=== PATIENT | female | born 1945 | race Caucasian/White ===

== ENCOUNTER 2018-09-24 02:52 | Inpatient (IN) | payer OTHER ==
[~2018-09-24] VITALS: Ht 152.4 cm; Wt 63.5 kg
[~2018-09-24 02:52] MED LIST: ADVAIR HFA115 MCG/21 INH; ALBUTEROL SULFAT2 MG PO; ASPIRIN EC325 M1 PO; CARDIZEM CD180 MG PO; CLONAZEPAM 0.50.5 M1 PO; COZAAR 25 MG TA25 M1 PO; DUONEB 2.5-0.5 M3 ML INH; FLEXERIL PO; FLORANEX TABLE1 EACH PO; FOLIC ACID 40400 MCG PO; KLOR-CON 1010 MEQ PO; KRILL OIL500 MG PO; LASIX 40 MG TAB40 M1 PO; LEVAQUIN 500 M500 M2 PO; MIRALAX255 GM PO; MUCINEX TA600 MG/TA2 PO; MUCINEX600 MG PO; MULTIVITAMINS1 EAC7 PO; NICOTINE TRANSDE7 MG TD; OLANZAPINE2.5 MG PO; OXYGEN MISCELL; PREDNISONE 10 M10 M1 PO; PREDNISONE 10 M10 MG PO; PREDNISONE 20 M20 MG PO; PROTONIX40 M1 PO; PROTONIX40 M2 PO; PROZAC20 MG PO; SUPER B COMPLE150 MG PO; TESSALON PERLE100 MG PO; TRAMADOL 50 MG50 MG PO; ULTRAM 50MG TAB50 MG PO
[2018-09-24 03:31] LABS: HEMATOCRIT 35.7 % (37.0-47.0); HEMOGLOBIN 11.8 gm/dL (12.0-15.0); MCH 28.1 pg (26.0-34.0); MCV 84.9 fL (80.0-100.0); MPV 7.4 fl. (7.2-11.1); NUCLEATED RBCS 0 /100WBC; PLATELET COUNT* 317 thou/uL (150-400); RBC 4.21 mil/uL (4.20-5.00); RDW-CV 14.1 % (10.5-14.5); WBC 12.7 thou/uL (4.0-11.0)
[2018-09-24 03:42] LABS: INFLUENZA A ANTIGEN None Detected (None Detect)
[2018-09-24 03:47] LABS: ANION GAP 3 mmol/L (7-16); BUN 16 mg/dL (7-18); CALCIUM 8.6 mg/dL (8.5-10.1); CHLORIDE 94 mmol/L (98-107); CO2 33 mmol/L (21-32); CREATININE 0.6 mg/dL (0.6-1.3); GLUCOSE 128 mg/dL (70-99); SODIUM 130 mmol/L (136-145)
[2018-09-24 03:48] LABS: POTASSIUM 4.4 mmol/L (3.5-5.1)
[2018-09-24 03:58] LABS: ALBUMIN 2.4 g/dL (3.4-5.0); ALKALINE PHOSPHATASE 68 U/L (46-116); INR 1.1; NT-PRO BRAIN NAT PEPTIDE 300 pg/mL (<300); PROTIME 11.1 Seconds (9.20-11.50); SGOT 28 U/L (15-37); SGPT 24 U/L (30-65); TOTAL BILIRUBIN 0.3 mg/dL (<0.1-1.0); TOTAL PROTEIN 6.8 g/dL (6.4-8.2); TROPONIN-I LEVEL <0.06 ng/mL (<0.06)
[2018-09-24 05:13] LABS: ABSOLUTE LYMPHOCYTES 0.4 thou/uL (0.8-5.3); ABSOLUTE MONOCYTES 1.9 thou/uL (0.0-1.2); ABSOLUTE NEUTROPHILS 10.4 thou/uL (1.6-8.1)
[2018-09-24 05:14] LABS: PLATELET ESTIMATE ADEQUATE
[2018-09-24 05:49] LABS: URINE BILIRUBIN NEGATIVE (Negative); URINE BLOOD NEGATIVE (Negative); URINE CLARITY CLEAR; URINE COLOR YELLOW; URINE GLUCOSE-RANDOM NEGATIVE (Negative); URINE KETONES NEGATIVE (Negative); URINE LEUKOCYTES-REFLEX NEGATIVE (Negative); URINE NITRITE-REFLEX NEGATIVE (Negative); URINE PROTEIN NEGATIVE (Negative); URINE UROBILINOGEN 0.2 E.U./dl (0.2-1.0)
--- NOTE | 2018-09-24 08:15 | NUR ---
PT WAS TRANSFERRED INTO HOSPITAL BED.
--- NOTE | 2018-09-24 09:00 | NUR ---
PT GIVEN BREAKFAST TRAY AT THIS TIME.
--- NOTE | 2018-09-24 10:30 | NUR ---
PT BROUGHT FAN FOR ROOM PER REQUEST
[2018-09-24 10:58] VITALS: BP 135/44
--- NOTE | 2018-09-24 15:00 | EKG ---
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 : 1945 Requested By: Cristal Sumner Order Number: [id number] MD: Mychal Richardson Measurements Intervals [place] Rate: 107 P: 85 [place]: 157 QRS: 86 QRSD: 97 T: 63 QT: 330 QTc: 441 Interpretive Statements Sinus tachycardia Consider right atrial enlargement Borderline right axis deviation Compared to ECG 02/23/2017 18:44:54 Sinus rhythm no longer present Electronically Signed On 09-24-2018 15:00:23 [employer] by Mychal Richardson [email or web address] <ELECTRONICALLY SIGNED> By: Mychal Richardson MD, FAC 09/24/18 1500 0325 0325 Mychal Richardson MD, [facility] /EPI
[2018-09-24 15:49] VITALS: BP 120/50
[2018-09-24] MEDS ORDERED: ATIVAN0.5 MG PO (17:02)
[2018-09-24] MEDS ORDERED: FLECAINIDE ACET50 M1 PO (17:02)
[2018-09-24] MEDS ORDERED: UNICOMPLEX M TA1 TA1 PO (17:05)
--- NOTE | 2018-09-24 17:42 | NUR ---
ASSESSMENT COMPLETE. PT ALERT AND ORIENTED X4. PT ADMITTED FLU+, FALL, AND DYPSNEA. PT GIVEN TAMIFLU AND IV LEVAQUIN. PT HAS HX COPD, CURRENT SMOKER. PT HAS RT TREATMENTS Q4, BIPAP HS. PT IS RESTING AT THIS TIME. PT TAKES MEDS WITHOUT DIFFICULTY. PT USES BEDPAN FOR WEAKNESS. SEE ASSESSMENT AND VITALS FOR OTHER DETAILS. CALL LIGHT WITHIN REACH, WILL CONTINUE PLAN OF CARE
[2018-09-24 20:15] VITALS: BP 134/41
[2018-09-25 04:46] LABS: ABSOLUTE LYMPHOCYTES 1.5 thou/uL (0.8-5.3); ABSOLUTE MONOCYTES 1.4 thou/uL (0.0-1.2); ABSOLUTE NEUTROPHILS 8.2 thou/uL (1.6-8.1); BASOPHILS 0.4 %; EOSINOPHILS 0.2 %; HEMATOCRIT 32.5 % (37.0-47.0); HEMOGLOBIN 10.4 gm/dL (12.0-15.0); LYMPHOCYTES 13.8 %; MCH 27.4 pg (26.0-34.0); MCV 85.7 fL (80.0-100.0); MONOCYTES 12.1 %; MPV 8.2 fl. (7.2-11.1); NUCLEATED RBCS 0 /100WBC; PLATELET COUNT* 286 thou/uL (150-400); POLYS 73.5 %; RBC 3.79 mil/uL (4.20-5.00); RDW-CV 14.3 % (10.5-14.5); WBC 11.2 thou/uL (4.0-11.0)
--- NOTE | 2018-09-25 05:36 | NUR ---
PT SLEPT MOST OF SHIFT. ASSESSMENT DOCUMENTED. MEDS GIVEN PER E-OCT. IV PATENT. PT REPORTED PAIN IN HER RIGHT KNEE, PAIN MEDS GIVEN PER E-MAR. PT EXPRESSED CONCERNS THAT SHE IS NOT ON MUCINEX AND THAT HER LORAZEPAM HAD NOT BEEN RESTARTED. PT BECAME VERY ANXIOUS STATING SHE HAD TO HAVE HER ANXIETY MEDS OR SHE WOULD START HAVING CHEST PALPITATIONS, DR NOTIFIED, ORDER RECIVED. PT UP TO BSC THIS SHIFT FOR BOWEL MOVEMENT. WILL CONTINUE WITH PLAN OF CARE.
[2018-09-25 05:43] LABS: CALCIUM 8.6 mg/dL (8.5-10.1); CREATININE 0.5 mg/dL (0.6-1.3); MAGNESIUM 1.9 mg/dL (1.8-2.4)
[2018-09-25 07:40] VITALS: BP 166/66
--- NOTE | 2018-09-25 15:15 | NUR ---
SPOKE TO THE PATIENT TO DISCUSS HER HOME SITUATION, DISCHARGE PLANNING, AND TO INFORM OF THE ROLE OF CM. PATIENT ALERT, ORIENTED, AND INDPENDENT WITH ADL'S. PATIENT RESIDES AT HOME ALONE. PATIENT INFORMS THAT HER SON AND DIL ARE AVIALABLE TO ASSIST HER NEEDED, AND ASSIST HER WITH GROCERY SHOPPING. PATIENT ABLE TO DO LITE CLEANING AND IS ON-SERVICE MEALS ON WHEELS. PATIENT INFORMS THAT SHE HAS HOME OXYGEN AND TRILOGY AT HOME WITH [facility]. PATIENT ALSO OWNS A WALKER, BUT DOES NOT USE IT TO AMBULATE. PAATIENT PLANS TO RETURN HOME AT D/C AND IS OPEN TO HH. CM WILL REMAINI AVAILABLE TO ASSIST AND FOLLOW NEEDED.
[2018-09-25 16:07] VITALS: BP 150/55
--- NOTE | 2018-09-25 17:24 | NUR ---
ASSESSMENT COMPLETE. PT ALERT AND ORIENTED X4. MUCINEX STARTED TODAY PER PT REQUEST. PULMONARY CONSULT FOR ABNORMAL CTA ON 09/24. PT IS ON 2L PER NC WITH [place] SATS, VSS. AFEBRILE. PT TOLERATING MEALS, DENIES N/V. SWALLOW EVAL TODAY, PT DID FINE PER SPEECH. PT IS IN ISOLATION FOR FLU B. PT IS UP ONE ASSIST TO BSC. LARGE BM TODAY. IV LEVAQUIN GIVEN DAILY. SEE ASSESSMENT AND VITALS FOR OTHER DETAILS. CALL LIGHT WITHIN REACH, WILL CONTINUE PLAN OF CARE
[2018-09-25 19:45] VITALS: BP 168/55
[2018-09-26 04:10] LABS: ABSOLUTE LYMPHOCYTES 2.1 thou/uL (0.8-5.3); ABSOLUTE MONOCYTES 1.1 thou/uL (0.0-1.2); ABSOLUTE NEUTROPHILS 7.5 thou/uL (1.6-8.1); BASOPHILS 0.4 %; EOSINOPHILS 0.3 %; LYMPHOCYTES 19.5 %; MCH 27.6 pg (26.0-34.0); MCHC 32.4 g/dL (28.0-37.0); MCV 85.2 fL (80.0-100.0); MONOCYTES 10.5 %; MPV 7.8 fl. (7.2-11.1); NUCLEATED RBCS 0 /100WBC; PLATELET COUNT* 316 thou/uL (150-400); POLYS 69.3 %; RDW-CV 14.5 % (10.5-14.5); WBC 10.8 thou/uL (4.0-11.0)
[2018-09-26 04:25] LABS: CALCIUM 8.6 mg/dL (8.5-10.1); CREATININE 0.6 mg/dL (0.6-1.3); POTASSIUM 3.7 mmol/L (3.5-5.1)
--- NOTE | 2018-09-26 06:17 | NUR ---
PT SLEPT MOST OF SHIFT. ASSESSMENT DOCUMENTED. MEDS GIVEN PER E-OCT. IV PATENT. NO REPORTS OF PAIN THIS SHIFT. ANXIETY MEDS GIVEN PER E-OCT. PT UP TO BSC THROUGH NIGHT. WILL CONTINUE WITH PLAN OF CARE.
[2018-09-26 08:45] VITALS: BP 160/65
[2018-09-26 10:22] VITALS: BP 168/55
[2018-09-26 16:45] VITALS: BP 160/66
--- NOTE | 2018-09-26 18:44 | NUR ---
PATIENT RESTING IN BED, ALERT AND ORIENED, IS ON 2L OF OXYGEN, DENIES ANY TROUBLE BREATHING. STATES NO NEEDS AT THIS TIME. BED IN LOWEST POSITION, CALL LIGHT WITHIN REACH, WILL CONTINUE TO MONITOR.
[2018-09-27 07:45] VITALS: BP 157/50
--- NOTE | 2018-09-27 10:59 | CON ---
[address] [address] CONSULTATION Name: SOCRATES BROWN Room: [address] IN M.R.#: [id number] Admission: 09/24/18 Attend Phys: Mike Dodge MD Discharge: Date of : 41 Report #: [id number] THIS REPORT FOR: //name// CC: Mike Perez REASON FOR CONSULTATION: Pulmonary nodule. HISTORY OF PRESENT ILLNESS: This is a 73-year-old female patient who continues to smoke. She has COPD with chronic respiratory failure, on home oxygen, although she is not on invasive ventilation. She presented to the hospital after she sustained a fall. Apparently, she was sitting in a chair and she fell over, hitting a table, although she did not cause significant injury, but she was too weak to get up. She was brought into the ER and had evaluation started. She was found to have influenza positive and being treated currently for influenza and COPD exacerbation. The patient has background of arthritis and she told me that few days prior to the fall, she was not feeling well. She felt some increasing shortness of breath, fatigue and tiredness and muscle aches, although she is not sure if she had any fever. She has a background history of COPD as mentioned above, diastolic heart failure, fibromyalgia and cervical cancer and she continues to smoke daily. She denied any history of sick contact. She denied any nasal discharge or obstruction. Her workup included a CT of the chest that showed pulmonary nodule that will be discussed below. PAST MEDICAL HISTORY: COPD; chronic respiratory failure, on home oxygen; anxiety; hypertension; diabetes mellitus; peripheral vascular disease; fibromyalgia. PAST SURGICAL HISTORY: Includes hysterectomy, cervical cancer. FAMILY HISTORY: Reviewed with the patient, noncontributory. SOCIAL HISTORY: She continues to smoke daily. Does not drink alcohol excessively, does not abuse drugs. Lives alone. ALLERGIES: SHE REPORTED ALLERGIES TO BUDESONIDE, ASPARTAME, AZITHROMYCIN, CELECOXIB, LATEX, METOCLOPRAMIDE, AND PREGABALIN. REVIEW OF SYSTEMS: She is not sure if she had any fever or chills. She denied visual changes, blurring of vision. She denied any hearing loss. She denied any difficulty swallowing, change in voice. She denied any hoarseness of voice. She reported some cough and shortness of breath. She has no nausea, no vomiting. She had no dysuria, frequency, urgency, anxiety or depression or rash. The rest of the review of system was negative 12-point review of the patient. PHYSICAL EXAMINATION: [place] [address] CONSULTATION Name: SOCRATES BROWN Room: [address]#: [id number] Admission: 09/24/18 Attend Phys: Mike Dodge MD Discharge: Date of : 41 Report #: [id number] VITAL SIGNS: On examination, she is on 2 liter oxygen with saturation more than 90%, blood pressure 160/55, temperature 37.5, pulse rate of 100. GENERAL APPEARANCE: Awake, alert, answers question appropriately, in no distress. HEAD: Normocephalic, atraumatic. EYES: Pupils reactive to light. Not pale, no jaundice. External ear looks healthy and normal. Nasal cavity, patent passages. CHEST: Diminished air movements bilaterally with prolonged expiratory phase. No definite wheezes. HEART: S1, S2, no murmur. ABDOMEN: Benign, soft, lax, nontender, positive bowel sounds. No masses felt, no rebound, no rigidity. EXTREMITIES: Lower extremity, no edema. Moving 4 extremities spontaneously. No focal weakness. Cranial nerves grossly normal. PSYCHIATRIC: Mood and affect appropriate. NEUROLOGIC: Cranial nerves grossly normal. LABORATORY DATA: Her respiratory virus panel showed she is positive for influenza B. Her creatinine is 0.6, BUN 12, potassium 3.7, sodium 137, glucose of 146. CRP was elevated and BNP was slightly elevated. Her INR is 1.1. Her ____ is 12.7, ____ of 11.8, platelet of 317. She had a chest x-ray in the ER that did not show acute pathology; however, a CT of the chest, although it was negative for PE demonstrated 9 mm pulmonary nodule in the left upper lobe, which is no compared to 2009. IMPRESSION: 1. Bmztf-ms-xkgptll respiratory failure. 2. Chronic obstructive pulmonary disease exacerbation. 3. Respiratory virus illness. 4. Influenza B virus. 5. Pulmonary nodule. RECOMMENDATIONS: 1. The patient will be treated with scheduled nebulization treatment, Tamiflu and steroid taper in addition to antibiotics and symptomatic cough management in addition to Mucinex to help with the secretions. 2. I had a long discussion with the patient about the pulmonary nodule and a concern for malignancy given the history of smoking. She understood. She was initially hesitant to pursue any followup regarding this nodule, but she agreed to have a followup CT scan. I would recommend initially to have a CT scan done in 3 months to keep an eye on the pulmonary nodule and depending on the followup CT scan decide further management. The patient actually is a patient in our office and she has an appointment in our office in 12/12/2018, so we can see her in the office and order a followup CT scan if she desires to continue to follow regarding the pulmonary nodule, although she told me probably she will not consent for treatment for cancer if this proves to be cancer in any form, [place] [address] CONSULTATION Name: SOCRATES BROWN Geo Room: [address] IN M.R.#: [id number] Admission: 09/24/18 Attend Phys: Mike Dodge MD Discharge: Date of : 41 Report #: [id number] radiation, no chemotherapy or surgery, but at least she agreed to continue to follow. We would recommend a CT scan after 3 months. Discussed with the nursing staff. The appointment will be added to the discharge instructions. Thank you for the consult. <ELECTRONICALLY SIGNED> By: Omer Silva MD 09/27/18 1059 1105 [id number] Silva MD /umm
[2018-09-27 15:40] VITALS: BP 158/72
--- NOTE | 2018-09-27 15:55 | NUR ---
ASKED BY MANAGER PERFORMANCE IMPROVEMENT TO SEND A REFERRAL TO [facility] FOR SNF. CALLED [facility] [phone] AND SPOKE WITH CHAPARRO, SHE SAID THEY HAVE BEDS AVAILABLE AND COULD ACCEPT THE PATIENT OVER THE WEEKEND, BUT WOULD NEED AUTH FROM [facility] FIRST. FAXED REFERRAL INFO TO CHAPARRO.
--- NOTE | 2018-09-27 17:02 | NUR ---
SW received call from Eunice at [facility] who informed SW that they have helped pt with Meals on Wheels and providing support as needed. Eunice said that if pt wanted to have Hospice services, they would be able to accept pt but Eunice mentioned that she was aware pt wanted to go to SNF at [facility]. SW to continue to follow to assist with safe dc planning.
--- NOTE | 2018-09-27 18:30 | NUR ---
PATIENT RESTED IN BED MOST OF THE SHIFT. MEDS GIVEN ACCORDING TO EMAR, ATAVAN GIVEN FOR ANXIETY. PATIENT IS ALRET AND ORIENTED, TWO BED RAILS UP, BED AT LOWEST SETTING, CALL LIGHT WITHIN REACH, WILL CONTINUE TO MONITOR.
--- NOTE | 2018-09-27 19:17 | NUR ---
REVIEWED AND AGREE WITH CHARTING BY GUTIERREZ SANDERS.
[2018-09-28 00:31] VITALS: BP 179/87
[2018-09-28 08:08] VITALS: BP 165/65
--- NOTE | 2018-09-28 16:57 | NUR ---
ASESSMENT COMPLETE. PT ALERT AND ORIENTED X4. PT TO DC TO [facility] WHEN INSURANCE ACCEPTS. PT DENIES PAIN. ATIVAN GIVEN PRN ONCE. SCHEDULED TRAMADOL FOR BODY ACHES. PT IS UP STANDBY ASSIST TO BSC. TOLERATING MEALS, DENIES N/V. VSS, PT IS ON 2L PER NC WHICH SHE WEARS AT HOME. ISOLATION FOR FLU+. PT IV ABX CHANGED TO PO. SEE ASSESSMENT AND VITALS FOR OTHER DETAILS. CALL LIGHT WITHIN REACH, WILL CONTINUE PLAN OF CARE
[2018-09-28 20:15] VITALS: BP 157/41
--- NOTE | 2018-09-29 05:42 | NUR ---
PATIENT HAS SLEPT MOST OF THE SHIFT. DID REQUEST SOME ANXIETY MEDICATION AROUND 0000. VITAL SIGNS STABLE ON 2 LITERS OF OXYGEN. CALL LIGHT IS IN REACH, BED ALARM IS ON WILL CONTINUE TO MONITOR.
[2018-09-29 08:00] VITALS: BP 137/44
[2018-09-29 16:00] VITALS: BP 133/37
--- NOTE | 2018-09-29 16:50 | NUR ---
ASSESSMENT COMPLETE. PT ALERT AND ORIENTED X4. PT REPORTS INCREASE IN BODY ACHES, SCHEDULED TRAMADOL GIVEN. PT HAS [place] SATS ON 2L, VSS. PO LEVAQUIN GIVEN. PT IS UP STANDBY TO BSC. PT DENIES N/V, TOLERATING DIET. SEE ASSESSMENT AND VITALS FOR OTHER DETAILS. CALL LIGHT WITHIN REACH, WILL CONTINUE PLAN OF CARE.
[2018-09-29 20:00] VITALS: BP 142/53
[2018-09-30 04:29] LABS: ABSOLUTE BASOPHILS 0.1 thou/uL (0.0-0.2); ABSOLUTE EOSINOPHILS 0.2 thou/uL (0.0-0.7); ABSOLUTE LYMPHOCYTES 1.9 thou/uL (0.8-5.3); ABSOLUTE MONOCYTES 1.5 thou/uL (0.0-1.2); ABSOLUTE NEUTROPHILS 7.2 thou/uL (1.6-8.1); BASOPHILS 0.7 %; EOSINOPHILS 1.7 %; HEMOGLOBIN 11.6 gm/dL (12.0-15.0); LYMPHOCYTES 17.3 %; MCHC 33.1 g/dL (28.0-37.0); MCV 84.6 fL (80.0-100.0); MONOCYTES 13.8 %; MPV 7.8 fl. (7.2-11.1); NUCLEATED RBCS 0 /100WBC; PLATELET COUNT* 298 thou/uL (150-400); POLYS 66.5 %; RBC 4.14 mil/uL (4.20-5.00); RDW-CV 14.5 % (10.5-14.5); WBC 10.9 thou/uL (4.0-11.0)
[2018-09-30 04:55] LABS: CALCIUM 8.6 mg/dL (8.5-10.1); CREATININE 0.6 mg/dL (0.6-1.3)
[2018-09-30 05:09] LABS: URINE BILIRUBIN NEGATIVE (Negative); URINE BLOOD NEGATIVE (Negative); URINE CLARITY CLEAR; URINE COLOR YELLOW; URINE GLUCOSE-RANDOM NEGATIVE (Negative); URINE KETONES NEGATIVE (Negative); URINE LEUKOCYTES-REFLEX NEGATIVE (Negative); URINE NITRITE-REFLEX NEGATIVE (Negative); URINE PROTEIN NEGATIVE (Negative); URINE SPECIFIC GRAVITY 1.015 (1.005-1.030); URINE UROBILINOGEN 0.2 E.U./dl (0.2-1.0)
--- NOTE | 2018-09-30 06:41 | NUR ---
ASSUMED CARE OF PT AT 1900 PT ALERT AND ORIENTED X4 VS AND ASSESSMENT STABLE. PT HAD C/O GENERALIZED PAIN RELIEVED WITH SCHEDULED TRAMADOL.PT UP FREQUENTLY VOIDING OVERNIGHT AND C/O BURNING AND URGENCY. OBTAINED ORDER FOR U/A. WILL CONTINUE PLAN OF CARE.
[2018-09-30 08:20] VITALS: BP 150/45
[2018-09-30 11:42] VITALS: BP 168/55
[2018-09-30] MEDS ORDERED: LEVAQUIN 500 M500 M2 PO (11:45)
[2018-09-30] MEDS ORDERED: ADVAIR HFA 230M12 GM INH (11:46)
--- NOTE | 2018-09-30 12:55 | NUR ---
LOURDES received call from Debby in admissions at [facility] who provided acceptance and scheduled ride for 2:00 to 2:30. DC leaf stripper faxed final orders to [facility]. LOURDES called pt son and provided dc info. Pt nurse aware.
[2018-09-30 15:34] VITALS: BP 168/55
--- NOTE | 2018-09-30 15:35 | NUR ---
PATIENT IS ALERT AND ORIENTED TODAY VERY PLEASANT. UP WITH STAND BY ASSIST TO THE BEDSIDE COMMODE. VITAL SIGNS STABLE ON 2 LITERS OF OXYGEN. PATIENT IS BEING DISCHARGED TO [facility]. DISCAHRGE INSTRUCTIONS SENT TO THE FACILTIY. PATIENT LEFT VIA WHEELCHAIR WITH [facility] TRANSPORTATION. REPORT GIVEN TO ANURAG. PACKET SENT WITH TRANSPORTER.
== END 2018-09-30 15:20 | DRG 193 ==
LOC: M.ERS 02:52 → M.TBA-ER 05:08 → M.3W 05:08
PROVIDERS: Emergency Medicine; Family Medicine; Internal Medicine; ADMIT Internal Medicine
DX: J10.1 Influenza due to other identified influenza virus with other respiratory manifestations (principal); J96.21 Acute and chronic respiratory failure with hypoxia; R65.11 Systemic inflammatory response syndrome (SIRS) of non-infectious origin with acute organ dysfunction; E87.1 Hypo-osmolality and hyponatremia; J44.1 Chronic obstructive pulmonary disease with (acute) exacerbation; I50.32 Chronic diastolic (congestive) heart failure; E44.0 Moderate protein-calorie malnutrition; F41.9 Anxiety disorder, unspecified; Z85.41 Personal history of malignant neoplasm of cervix uteri; R91.1 Solitary pulmonary nodule; G89.29 Other chronic pain; F17.210 Nicotine dependence, cigarettes, uncomplicated; E11.51 Type 2 diabetes mellitus with diabetic peripheral angiopathy without gangrene; M54.9 Dorsalgia, unspecified; I11.0 Hypertensive heart disease with heart failure; M25.559 Pain in unspecified hip; Z91.040 Latex allergy status; Z90.710 Acquired absence of both cervix and uterus; Z88.8 Allergy status to other drugs, medicaments and biological substances; Z88.1 Allergy status to other antibiotic agents; Z68.27 Body mass index [BMI] 27.0-27.9, adult

== ENCOUNTER 2018-11-17 11:45 | Inpatient (IN) | payer OTHER ==
[2018-11-17] VITALS (9 sets, daily range): BP systolic 116–218; BP diastolic 47–82
[~2018-11-17] VITALS: Ht 162.6 cm; Wt 67.3 kg
[~2018-11-17 11:45] MED LIST changes: +ADVAIR HFA 230M12 GM INH; -ALBUTEROL SULFAT2 MG PO; +ALBUTEROL SULFAT4 M1 PO; +ATIVAN0.5 MG PO; -COZAAR 25 MG TA25 M1 PO; +DOXYCYCLINE 10100 MG PO; +FLECAINIDE ACET50 M1 PO; +IPRAT-ALBUT 0.5-3 ML INH; +LOSARTAN POTASS50 MG PO; +NITROGLYCERIN0.4 MG SUBLING; +SINGULAIR 10 MG10 M1 PO; +UNICOMPLEX M TA1 TA1 PO
[2018-11-17 12:20] LABS: URINE BILIRUBIN NEGATIVE (Negative); URINE BLOOD NEGATIVE (Negative); URINE CLARITY CLOUDY; URINE COLOR YELLOW; URINE GLUCOSE-RANDOM NEGATIVE (Negative); URINE KETONES TRACE (Negative); URINE LEUKOCYTES-REFLEX NEGATIVE (Negative); URINE NITRITE-REFLEX POSITIVE (Negative); URINE PROTEIN NEGATIVE (Negative); URINE UROBILINOGEN 0.2 E.U./dl (0.2-1.0)
[2018-11-17 12:27] LABS: ABSOLUTE BASOPHILS 0.1 thou/uL (0.0-0.2); ABSOLUTE EOSINOPHILS 0.2 thou/uL (0.0-0.7); ABSOLUTE MONOCYTES 1.1 thou/uL (0.0-1.2); ABSOLUTE NEUTROPHILS 6.4 thou/uL (1.6-8.1); BASOPHILS 0.9 %; EOSINOPHILS 2.5 %; HEMATOCRIT 34.7 % (37.0-47.0); HEMOGLOBIN 11.4 gm/dL (12.0-15.0); LYMPHOCYTES 11.2 %; MCH 27.4 pg (26.0-34.0); MONOCYTES 12.4 %; MPV 6.9 fl. (7.2-11.1); NUCLEATED RBCS 0 /100WBC; PLATELET COUNT* 375 thou/uL (150-400); RBC 4.18 mil/uL (4.20-5.00); RDW-CV 15.7 % (10.5-14.5); WBC 8.8 thou/uL (4.0-11.0)
[2018-11-17 12:30] LABS: SQUAMOUS >10 Many /LPF (0-3)
[2018-11-17 12:32] LABS: BACTERIA-REFLEX >30 Many /HPF (None Seen); CASTS None Seen /LPF (None Seen); CRYSTALS None Seen /LPF (None Seen); MUCUS None Seen strn/LPF (None Seen); URINE RBC 0-2 Rare /HPF (0-2); URINE WBC-REFLEX None Seen /HPF (0-5)
[2018-11-17 12:35] LABS: ANION GAP 7 mmol/L (7-16); BUN 7 mg/dL (7-18); CALCIUM 9.1 mg/dL (8.5-10.1); CHLORIDE 96 mmol/L (98-107); CO2 37 mmol/L (21-32); CREATININE 0.6 mg/dL (0.6-1.3); GLUCOSE 93 mg/dL (70-99); POTASSIUM 4.5 mmol/L (3.5-5.1); SODIUM 140 mmol/L (136-145); TROPONIN-I LEVEL <0.06 ng/mL (<0.06)
[2018-11-17 12:37] LABS: ALBUMIN 2.7 g/dL (3.4-5.0); ALKALINE PHOSPHATASE 71 U/L (46-116); NT-PRO BRAIN NAT PEPTIDE 567 pg/mL (<300); SGOT 23 U/L (15-37); SGPT 27 U/L (30-65); TOTAL BILIRUBIN 0.5 mg/dL (<0.1-1.0); TOTAL PROTEIN 7.3 g/dL (6.4-8.2)
[2018-11-17 12:41] LABS: BE 5.7 mmol/L (-2 to +3); pH 7.313 (7.340-7.450)
[2018-11-17 12:44] LABS: PCO2 70.8 mmHg (35.0-45.0)
[2018-11-17 12:45] LABS: PO2 271.9 mmHg (75.0-100.0)
[2018-11-17 22:53] LABS: BE 3.7 mmol/L (-2 to +3); PO2 97.7 mmHg (75.0-100.0); pH 7.349 (7.340-7.450)
[2018-11-17 22:54] LABS: PCO2 56.7 mmHg (35.0-45.0)
[2018-11-18] VITALS (16 sets, daily range): BP systolic 110–207; BP diastolic 33–75
--- NOTE | 2018-11-18 07:47 | NUR ---
ASSUMED CARE FROM MARY CURRAN OVERNIGHT. PATIENT TOLERATED BIPAP WELL. PATIENT ATTEMPTED TO BE OFF BIPAP <1 HOUR AND BECAME SOA. BACK ON BIPAP AT THIS TIME, TOLERATING WELL. REPORT GIVEN TO VONNIE.
--- NOTE | 2018-11-18 09:59 | EKG ---
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1945 Requested By: Perlita Zheng Order Number: [id number] MD: Mychal Richardson Measurements Intervals [place] Rate: 113 P: 78 [place]: 119 QRS: 82 QRSD: 91 T: 66 QT: 322 QTc: 442 Interpretive Statements Sinus tachycardia Right atrial enlargement Borderline right axis deviation Baseline wander in lead(s) III,aVL,aVF Compared to ECG 10/18/2018 14:10:43 Sinus rhythm no longer present Atrial premature complex(es) no longer present Electronically Signed On 11-18-2018 9:58:54 CDT by Mychal Richardson [email or web address] <ELECTRONICALLY SIGNED> By: Mychal Richardson MD, FACC 11/18/18 0958 1246 1246 Mychal Richardson MD, FACC /EPI
--- NOTE | 2018-11-18 10:58 | NUR ---
ICU ROUNDING: RN IN-CHARGE OF THE PATIENT INFORMS THAT THE PATIENT RECENTLY DISCHARGED FROM [facility], RESIDES AT HOME ALONE, AND HAD HH AT HOME. THERE ARE CONCERNS THAT THE PATIENT MAY NOT HAVE BEEN CARING FOR HERSELF APPROPRIATELY AT HOME. PATIENT CURRENTLY ON THE BIPAP. CM WILL REMAIN AVIALABLE TO ASSIST AND FOLLOW NEEDED.
--- NOTE | 2018-11-18 20:33 | NUR ---
PT ASSESSMENT CHARTED. VSS THROUGHOUT THE DAY. PATIENT TITRATED FROM 4L PER NC TO 3L. PT O2 SATURATION REMAINED AT >95% AND DID NOT REQUIRE GOING ON THE BIPAP AT ALL DURING THE DAY. PT/OT ORDERED AND PATIENT UP WITH PT TO CHAIR. DIET ADVANCED. PAIN NOTED TO BE GENERALIZED BUT RELIEVED WITH PRN MEDICATION. NO OTHER COMPLAINTS DURING THE DAY.
[2018-11-19] VITALS (12 sets, daily range): BP systolic 126–161; BP diastolic 41–57
--- NOTE | 2018-11-19 05:47 | NUR ---
REPORT RECEIVED FROM OFF GOING SHIFT AND CARE ASSUMMED. PT SITTING IN CHAIR AT BEDSIDE. ASSISTED BACK TO BED. PT DENIES SOB AND CHEST DISCOMFORT AT THIS TIME. O2 2L BNC INTACT. MONITORS INTACT AND ALARMS SET. VSS AND NO ACUTE CHANGES DURING SHIFT. DAY SHIFT RN STATED PT NEEDED A GARCIA BUT WAS UNABLE TO GET IT IN. 16FR GARCIA INSERTED WITHOUT DIFFICUTLY AND CONNECTED TO BEDSIDE BAG WITH YELLOW URINE RETURN. WILL CONTINUE TO MONITOR
[2018-11-19 08:26] LABS: BE 9.5 mmol/L (-2 to +3); PO2 75.8 mmHg (75.0-100.0); pH 7.454 (7.340-7.450)
[2018-11-19 08:30] LABS: PCO2 50.8 mmHg (35.0-45.0)
[2018-11-19 13:36] LABS: HEMATOCRIT 34.3 % (37.0-47.0); MCH 26.9 pg (26.0-34.0); MCHC 32.2 g/dL (28.0-37.0); MCV 83.4 fL (80.0-100.0); MPV 6.9 fl. (7.2-11.1); NUCLEATED RBCS 0 /100WBC; PLATELET COUNT* 425 thou/uL (150-400); RBC 4.11 mil/uL (4.20-5.00); RDW-CV 15.7 % (10.5-14.5); WBC 17.1 thou/uL (4.0-11.0)
--- NOTE | 2018-11-19 13:44 | CON ---
[address] [address] CONSULTATION Name: SOCRATES BROWN Room: [address] IN M.R.#: [id number] Admission: 11/17/18 Attend Phys: Marybeth Hogan Discharge: Date of : 41 Report #: [id number] THIS REPORT FOR: //name// CC: Katarzyna Perez DATE OF SERVICE: 11/18/2018 REFERRING PHYSICIAN: Katarzyna Douglass MD. CHIEF COMPLAINT: Respiratory failure. HISTORY OF PRESENT ILLNESS: The patient is a 73-year-old female who had been in and out of the hospital several times. She also has been at [facility]. The patient had been home for a few days and states that she had some friends doing some cleaning in her kitchen because of excess amount of dust that was scrubbing of the floors, cleaning of the izaguirre. Apparently, there had been some chemical fumes associated with the cleaning efforts. The patient developed shortness of breath, cough and did not improve. She also began to start using her Trilogy. She normally had not been using it for several days prior to the increased shortness of breath. Despite using her Trilogy, she contacted the ambulance service and the paramedics arrived. She was brought to the Emergency Room. The patient states that she had a cough and bringing up an occasional phlegm. She had not had any fever at home. REVIEW OF SYSTEMS: CONSTITUTIONAL: She has had chills. No fever. HEAD: She has occasional headache. EYES: She complains of blurred vision. This may be cataract related. ENT: Hearing, she does have a slight degree of hearing loss. Oral cavity: She has some problem swallowing at times. RESPIRATORY: See above. CARDIOVASCULAR: She has nonspecific chest pain and discomfort of a chronic nature. There is no radiation to this. GASTROINTESTINAL: She feels queasy at times. No vomiting. She denies diarrhea or bleeding in her stool. GENITOURINARY: She denies dysuria. She is not having any flank pain. MUSCULOSKELETAL: She has a history of fibromyalgia. She complains of generalized aches and pains that appear to be chronic in nature. SKIN: She denies any rash effect. NEUROLOGIC: She has use of her arms and legs. Denies numbness, tingling or weakness. She uses a walker and is able [place] [address] CONSULTATION Name: SOCRATES BROWN Room: [address]#: [id number] Admission: 11/17/18 Attend Phys: Marybeth Hogan Discharge: Date of : 41 Report #: [id number] PAST MEDICAL HISTORY: Severe chronic obstructive airways disease, fibromyalgia, history of cholecystectomy. Chronic hypercapnia, generalized weakness. She does have a history of cervical cancer and hypertension. ALLERGIES: SHE IS ALLERGIC TO BUDESONIDE, AZITHROMYCIN. CELEBREX, LATEX, METOCLOPRAMIDE, LYRICA AND ASPARTAME. FAMILY HISTORY: High blood pressure, anxiety. SOCIAL HISTORY: She lives by herself. She is a smoker, very vague as to how much and when she actually quit if she has. She smoked since she was in the 10th grade. MEDICATIONS: Lorazepam, Prozac, Lasix, Solu-Medrol, Zosyn, flecainide. Zyprexa, DuoNeb aerosol treatments, tramadol. PHYSICAL EXAMINATION: VITAL SIGNS: Blood pressure 143/46, respiratory rate 16 and unlabored. Pulse rate 80 and regular, temperature 98 degrees. She is on 4 liters, saturation 98%. HEENT: Head is atraumatic. Eyes: Pupils are round, equal, reactive. Sclerae and conjunctivae are clear. Extraocular muscles are intact. EARS: Auricular structures are normal. Throat is clear. Mucous membranes are slightly dry. She is edentulous. NECK: No adenopathy or JVD. Thyroid not enlarged. CHEST: Diminished breath sounds throughout. No wheezes, rales or rhonchi. CARDIOVASCULAR: Regular rhythm. No murmurs or rubs. ABDOMEN: Soft, without organomegaly or tenderness. EXTREMITIES: Trace of edema bilaterally. Pulses equal bilaterally. SKIN: Warm and dry without rash. NEUROLOGIC: She moves all 4 extremities. Strength is equal bilaterally. PSYCHIATRIC: She is awake, alert. She is cooperative. She complains of anxiety at times. She is able to focus and states that she does have a component of depression at times. LABORATORY DATA: Sodium 140, potassium 4.5, chloride 96, CO2 of 37, BUN of 7, creatinine 0.6, glucose 93. Bilirubin, liver enzymes are normal. Troponin normal. ProBNP normal. Hemoglobin and hematocrit of 11.4 and 35, white count 8800. Her initial arterial blood gas in the Emergency Room revealed a pH 7.31, pCO2 of 71, pO2 of 272, with a bicarbonate of 35 while on BiPAP 16/8 60% FIO2. Her most recent arterial blood gas, pH 7.35, pCO2 of 56, pO2 of 98, bicarbonate 31, while on 16/6 of BiPAP 30% FIO2. She is currently on a nasal cannula and saturations are above 95%. MEDICAL IMAGING STUDIES: Chest x-ray, evidence of COPD, flattening of the [address] [address] CONSULTATION Name: SOCRATES BROWN Room: [address] IN M.R.#: [id number] Admission: 11/17/18 Attend Phys: Marybeth Hogan Discharge: Date of : 41 Report #: [id number] diaphragms, hyperexpansion consistent with COPD. No acute infiltrates. ASSESSMENT: 1. Acute on chronic respiratory failure. 2. Severe chronic obstructive airways disease. 3. Anxiety. 4. Tobacco abuse. The patient remains a full code at this time. She is contemplating a component of hospice as an outpatient. Otherwise, would continue with the bronchodilator therapy, steroid therapy. Continue to monitor in the ICU overnight and if she is better, I see no reason why she cannot be transferred up to the medical floor. She is now on a nasal cannula and would recommend utilization of BiPAP with naps and at bedtime. She does have a Trilogy at home, and she will be instructed to use this on a nightly basis. Her anxiety needs to be controlled as well, and I would continue to investigate code status. She would be a candidate for a DNR/DNI considering the severity of her underlying lung disease. Approximately 35 minutes were critical care time. <ELECTRONICALLY SIGNED> By: Patrick Siddiqi MD 11/19/18 1344 0943 1026AlMD ibrahima Arce
[2018-11-19 13:59] LABS: ABSOLUTE LYMPHOCYTES 0.3 thou/uL (0.8-5.3); ABSOLUTE MONOCYTES 1.4 thou/uL (0.0-1.2); ABSOLUTE NEUTROPHILS 15.4 thou/uL (1.6-8.1); PLATELET ESTIMATE ADEQUATE
[2018-11-19 14:04] LABS: ALBUMIN 2.5 g/dL (3.4-5.0); CALCIUM 8.2 mg/dL (8.5-10.1); CREATININE 0.8 mg/dL (0.6-1.3); MAGNESIUM 1.4 mg/dL (1.8-2.4); POTASSIUM 3.9 mmol/L (3.5-5.1); TOTAL BILIRUBIN 0.2 mg/dL (<0.1-1.0); TOTAL PROTEIN 6.7 g/dL (6.4-8.2)
--- NOTE | 2018-11-19 18:34 | NUR ---
PATIENT PROGRESSED WELL TOWARDS GOALS. SITTING UP IN CHAIR TODAY. BATH COMPLETED, VITALS STABLE THROUGHOUT THIS SHIFT. PATIENT IS TELE STATUS. CALL LIGHT IN REACH. CARDIAC MONTIOR IN PLACE.
--- NOTE | 2018-11-20 05:54 | NUR ---
RECEIVED FROM OFF GOING SHIFT AND CARE ASSUMMED. PT SITTING IN CHAIR AT BEDIDE AND STATED SHE WAS HUNGRY SANCK PROVIDED. DENIES SOB ANDCHEST DISCOMFORT. PT HAS A NON PRODUCTIVE COUGH. O2 2 L BNC INTACT. MONITORS INTACT WITH ALARMS SET. PT WORE BIPAP AT BEDTIME. NO ACUTE CHANGES DURING SHIFT AND VSS. WILL CONTINUE TO MONITOR
[2018-11-20 07:51] VITALS: BP 161/54
[2018-11-20 10:30] VITALS: BP 155/44
--- NOTE | 2018-11-20 13:11 | NUR ---
pt transferred from icu this am to room 228 via wheelchair. pt is aox4 sarrythmia on conveyor monitor. on 2 l nc. and saturation is 94%. pt placed in chair. iv abx given. vss. pt is pleasant and denies pain, n/v. will continue to monitor pt
[2018-11-20 16:32] VITALS: BP 161/59
[2018-11-20 20:52] VITALS: BP 156/52
[2018-11-21] VITALS: BP 161/52
[2018-11-21 04:00] VITALS: BP 153/84
--- NOTE | 2018-11-21 05:16 | NUR ---
PT IS ABLE TO COMMUNICATE HER NEEDS TO STAFF EFFECTIVELY. CURRENT PAIN MEDICATION REGIMEN HAS BEEN ADEQUATE FOR CONTROLLING HER PAIN UP TO THIS TIME. TRANSFERRED TO TELE FROM ICU YESTERDAY. JOSE IS PATENT.
[2018-11-21 08:00] VITALS: BP 152/53
[2018-11-21 12:20] VITALS: BP 146/49
--- NOTE | 2018-11-21 15:11 | NUR ---
CONTINUE TO FOLLOW, MET WITH PT AND ALSO SPOKE WITH TING/DANIELE AND MICAH HASKINS/BRITNEY WHO IS FOLLOWING PT AFTER HOTLINE CALL. PT HAD JUST BEEN DC'D FROM [facility] LAST WEEK HOME WITH [facility]. PT LIVES ALONE, HOME IS 'DIRTY' AND CLUTTERED PER MICAH AND [facility] HAS BEEN HELPING HER GET CLEANED UP. PT HAS BEEN IN DISCUSSION WITH THEM REGARDING HOSPICE BUT UNSURE IF SHE REALLY UNDERSTANDS WHAT HOSPICE IS. TING IN TALKING WITH PT CURRENTLY EXPLAINING THEIR SERVICE. TALKED WIHT PT ABOUT HOW SHE HAD BEEN DOING AT HOME. HAS 2 SONS, THEY HELP WITH PT'S 3 DOGS. PT HAS WALKER, O2 AND TRILOGY AND NEBULIZER THRU [employer]. SHE HAS HAD MEALS ON WHEELS AND WOULD LIKE TO BE ABLE OT RETURN HOME AT [place]. PT IS INTO HER COPAY DAYS FOR SNF AND STATED SHE PAID 10 DAYS AT [facility] PRIOR TO LEAVING, EXPLAINED TO HER THAT THAT WOULD STILL BE THE CASE IF SHE WERE TO RETURN AND SHE DECLINES. WANTS TO GO HOME. UNSURE IF IT WILL BE WITH HH OR HOSPICE. MICAH/BRITNEY WILL NEED NOTIFIED WHEN PT RETURNS HOME ALSO. WILL FOLLOW [facility] [phone] FAX [phone] MICAH HASKINS/BRITNEY [phone] [facility] [phone] FAX [phone]
[2018-11-21 16:04] VITALS: BP 157/58
[2018-11-21 19:40] VITALS: BP 156/55
[2018-11-22] VITALS: BP 142/44
[2018-11-22 04:00] VITALS: BP 145/53
[2018-11-22 04:52] LABS: ABSOLUTE LYMPHOCYTES 0.7 thou/uL (0.8-5.3); ABSOLUTE MONOCYTES 0.8 thou/uL (0.0-1.2); ABSOLUTE NEUTROPHILS 10.9 thou/uL (1.6-8.1); BASOPHILS 0.1 %; HEMATOCRIT 33.9 % (37.0-47.0); HEMOGLOBIN 10.8 gm/dL (12.0-15.0); LYMPHOCYTES 5.8 %; MCH 26.8 pg (26.0-34.0); MCHC 31.9 g/dL (28.0-37.0); MCV 84.1 fL (80.0-100.0); MONOCYTES 6.2 %; MPV 7.3 fl. (7.2-11.1); NUCLEATED RBCS 0 /100WBC; PLATELET COUNT* 388 thou/uL (150-400); POLYS 87.9 %; RBC 4.03 mil/uL (4.20-5.00); RDW-CV 15.8 % (10.5-14.5); WBC 12.5 thou/uL (4.0-11.0)
[2018-11-22 05:13] LABS: CALCIUM 8.7 mg/dL (8.5-10.1); CREATININE 0.8 mg/dL (0.6-1.3); MAGNESIUM 2.3 mg/dL (1.8-2.4)
--- NOTE | 2018-11-22 05:29 | NUR ---
VITALS WNL. SEE MAR. SEE CHARTING. FALL PRECAUTIONS IN PLACE. HOURLY ROUNDING FOR SAFETY.
[2018-11-22 08:20] VITALS: BP 180/54
[2018-11-22 11:01] LABS: BE 2.8 mmol/L (-2 to +3); PCO2 46.9 mmHg (35.0-45.0); PO2 75.3 mmHg (75.0-100.0); pH 7.398 (7.340-7.450)
[2018-11-22 12:00] VITALS: BP 146/58
--- NOTE | 2018-11-22 14:00 | NUR ---
CONTINUE TO FOLLOW, DISCUSSED WITH DR LAWTON, ANTICIPATE DC EARLY NEXT WEEK, PT ASKING ABOUT GOING BACK TO REHAB. AWARE SHE IS IN HER COPAY DAYS. STATES SHE ISN'T READY TO RETURN HOME YET AND NEEDS TO BE STRONGER, WANTS TO RETURN TO [facility]. CALLED AND TALKED WITH JORDEN, PT WOULD NEED TO PAY $2345.00 UP FRONT FOR HER COPAY AND THEY WILL CONSIDER HER. WILL ALSO NEED TO GET INSURANCE AUTH THRU [employer]. FAXED REFERRAL. PT IS STILL CONSIDERING [facility] DOWN THE ROAD BUT NOT AT THIS TIME. WILL FOLLOW
[2018-11-22 15:45] VITALS: BP 137/35
--- NOTE | 2018-11-22 15:50 | NUR ---
WOUND CARE NOTE: ASSESSMENT TO THE BRIDGE OF NOSE PATIENT PRESENTS WITH AN EDEMATOUS AREA TO THE BRIDGE OF HER NOSE. PATIENT WEARS BIPAP AT NIGHT TIME AND STATED SHE HAD SIGNIFICANT AMOUNT OF PAIN TO HER NOSE THIS AM FROM IT. AREA IS EDEMATOUS WITH REDNESS. BLANCHABLE. IS PAINFUL TO TOUCH. EDUCATED PATIENT ON FINDINGS AND RECOMMENED USING AN OPTIFOAM UNDERNEATH THE BIPAP. PATIENT THANKFUL FOR THE INFORMATION. RECOMMEND USE A STRIP OF OPTIFOAM UNDERNEATH BIPAP IF POSSIBLE RN TO CHECK WITH RT TO SEE IF DIFFERENT MASK AVAILABLE
--- NOTE | 2018-11-22 16:08 | NUR ---
PT TOLERATING 2L PER NC THIS SHIFT IS AOX4, AND VSS. PT IV RUNNING WITH NO COMPLICATIONS THIS SHIFT. PT TOELRATING DIET AND IS UP WITH ASSISTANCE OF 1 AND IS ON THE TURN Q2 LIST BUT TURNS WELL HERSELF DURING THE DAY. PT HAS GARCIA FOR RETENTION AND NON PITTING EDEMA ON BLE. PT RUNNING SR, SINUS ARRHYTHMIA WITH PAC'S ON THE MONITOR WITH MINIMAL C/O PAIN. RT NOTIFIED TO CHANGE BIPAP MASK SO SHE DOES NOT HAVE A WOUND CREATED ON THE BRIDGE OF HER NOSE, DON WITH RT STATED HE WOULD CHANGE THE MASK. WILL SIGN OFF AT THIS TIME
--- NOTE | 2018-11-22 17:17 | NUR ---
ASSUMMED CARE OF PT. PT RESTING IN ROOM. FALL RISK PRECAUTIONS IN PLACE. HOURLY ROUNDING COMPLETED. WILL CONTINUE TO MONITOR.
[2018-11-22 20:00] VITALS: BP 136/36
[2018-11-23] VITALS: BP 145/44
[2018-11-23 04:00] VITALS: BP 145/48
--- NOTE | 2018-11-23 06:56 | NUR ---
VITALS WNL. SEE MAR. SEE CHARTING. FALL PRECAUTIONS IN PLACE. HOURLY ROUNDING FOR SAFETY.
[2018-11-23 08:00] VITALS: BP 133/47
[2018-11-23 12:00] VITALS: BP 134/38
--- NOTE | 2018-11-23 12:06 | NUR ---
ASSUMED CARE OF PT AT 0730. PT RESTING IN BED WAITING FOR BREAKFAST. PT A&0X4, COMPLAINS OF GENERALIZED PAIN. TREATED WITH PRN TRAMADOL WITH RELIEF. PT TRACING SA WITH PAC'S OCCASSIONAL PVCS ON THE TELEPHONE ASSEMBLER. PT ON 2L NC SAT 96%. DENIES ANY SHORTNESS OF BREATH. GARCIA TO DEPENDENT DRAINAGE. PT UP WITH 1 ASSIST AND WALKER TO BATHROOM. PT GOAL FOR TODAY IS IV ABX, STEROIDS, INCREASE ACTIVITY, UP TO CHAIR FOR MEALS AND PAIN MGMT. AM ASSESSMENT CHARTED. MEDICATIONS PER OCT. PT REPOSITION SELF WITH REMINDERS. HOURLY ROUNDING OBSERVED. BED IN LOW POSITION. CALL LIGHT WITHIN REACH. WILL CONTINUE PLAN OF CARE.
[2018-11-23 16:00] VITALS: BP 129/39
--- NOTE | 2018-11-23 18:20 | NUR ---
NO ACUTE CHANGES THROUGHOUT SHIFT. REFER TO CHARTING. PT SLOWLY PROGRESSING TOWARDS GOALS. PROBABLE DISCHARGE TO SNF ON Sunday11/25/18. MEDICATIONS PER OCT. PT REPOSITIONED EVERY 2 HOURS FOR COMFORT. HOURLY ROUNDING OBSERVED. BED IN LOW POSITION. BED ALARM IN PLACE. FALL PRECAUTIONS IN PLACE. CALL LIGHT WTIHIN REACH. WILL CONTINUE PLAN OF CARE.
[2018-11-23 22:21] LABS: INFLUENZA A ANTIGEN None Detected (None Detect); INFLUENZA B ANTIGEN None Detected (None Detect)
[2018-11-23 23:53] VITALS: BP 124/41
[2018-11-24 04:00] VITALS: BP 139/40
--- NOTE | 2018-11-24 06:43 | NUR ---
VITALS WNL. SEE MAR. SEE CHARTING. FALL PRECAUTIONS IN PLACE. HOURLY ROUNDING FOR SAFETY.
[2018-11-24 08:10] VITALS: BP 136/44
--- NOTE | 2018-11-24 10:00 | NUR ---
ASSUMED CARE OF PT AT 0730. PT RESTING IN BED WAITING FOR BREAKFAST. PT A&0X4, COMPLAINS OF HEADACHE. TREATED WITH PRN TRAMADOL WITH RELIEF. PT TRACING SA WITH PACS ON THE BOAT CANVAS MAKER AND INSTALLER. ON 2L NC SAT 96%. PT UP WITH 1 ASSIST. GARCIA TO DEPENDENT DRAINAGE. PT GOAL FOR TODAY IS UP TO CHAIR FOR MEALS AND PAIN MGMT. AM ASSESSMENT CHARTED. MEDICATIONS PER MAR. PT REPOSITIONS SELF WITH REMINDERS. HOURLY ROUNDING OBSERVED. BED IN LOW POSITION. CALL LIGHT WITHIN REACH. WILL CONTINUE PLAN OF CARE.
[2018-11-24 12:00] VITALS: BP 127/37
--- NOTE | 2018-11-24 16:28 | NUR ---
NO ACUTE CHANGES THROUGHOUT SHIFT. REFER TO CHARTING. PT DENIES ANY PAIN OR SHORTNESS OF BREATH THROUGHOUT THE AFTERNOON. PT UP TO CHAIR FOR MEALS. PT CONTINUES TO TRACE SA WITH PACS ON THE PHARMACY INTERN. ON 2L NC SAT UPPER 90'S. GARCIA TO DEPENDENT DRAINAGE. PT PROGRESSING TOWARDS GOALS. PROBABLE DISCHARGE TO SNF TOMORROW 11/25. MEDICATIONS PER OCT. PT REPOSITIONS SELF WITH REMINDERS. HOURLY ROUNDING OBSERVED. BED IN LOW POSITION. CALL LIGHT WITHIN REACH. WILL CONTINUE PLAN OF CARE.
[2018-11-24 19:50] VITALS: BP 141/51
[2018-11-25 00:02] VITALS: BP 123/40
[2018-11-25 04:00] VITALS: BP 158/43
[2018-11-25 05:30] LABS: HEMATOCRIT 37.3 % (37.0-47.0); MCH 26.8 pg (26.0-34.0); MCHC 32.1 g/dL (28.0-37.0); MCV 83.7 fL (80.0-100.0); MPV 7.7 fl. (7.2-11.1); NUCLEATED RBCS 0 /100WBC; PLATELET COUNT* 407 thou/uL (150-400); RBC 4.46 mil/uL (4.20-5.00); RDW-CV 16.7 % (10.5-14.5); WBC 16.6 thou/uL (4.0-11.0)
[2018-11-25 06:09] LABS: ABSOLUTE LYMPHOCYTES 1.3 thou/uL (0.8-5.3); ABSOLUTE MONOCYTES 0.8 thou/uL (0.0-1.2); ABSOLUTE NEUTROPHILS 14.4 thou/uL (1.6-8.1)
[2018-11-25 06:10] LABS: ANISOCYTOSIS 1+; PLATELET ESTIMATE INCREASED; POIKILOCYTOSIS 1+
[2018-11-25 06:14] LABS: ALBUMIN 2.3 g/dL (3.4-5.0); CALCIUM 8.4 mg/dL (8.5-10.1); CREATININE 0.8 mg/dL (0.6-1.3); MAGNESIUM 2.1 mg/dL (1.8-2.4); POTASSIUM 4.5 mmol/L (3.5-5.1); TOTAL BILIRUBIN 0.2 mg/dL (<0.1-1.0); TOTAL PROTEIN 5.6 g/dL (6.4-8.2)
--- NOTE | 2018-11-25 06:41 | NUR ---
VITALS WNL. SEE MAR. SEE CHARTING. FALL PRECAUTIONS IN PLACE. HOURLY ROUNDING FOR SAFETY.
[2018-11-25 08:24] VITALS: BP 141/43
--- NOTE | 2018-11-25 10:21 | NUR ---
PENSION EXAMINER SPOKE TO THE PATIENT TO DISCUSS DISCHARGE PLANNING NEEDS, AND TO INFORM THAT [facility] HAD ACCEPTED THE PATIENT. PATIENT INFORMS THAT SHE IS 'ABLE TO PAY THE $2400 UP FRONT TO [facility]', AND THAT HER 'CHILDREN WILL COME AFTER THEIR APPOINTMENT TO WRITE THE CHECK TO [facility]'. CM WILL REMAIN AVAILABLE TO ASSIST AND FOLLOW NEEDED.
[2018-11-25] MEDS ORDERED: ENOXAPARIN40 MG/0.1 SUBQ (11:11)
[2018-11-25 11:13] VITALS: BP 141/43
[2018-11-25 11:42] VITALS: BP 152/59
--- NOTE | 2018-11-25 13:50 | NUR ---
PT A/O. TELE TRACKING SINUS ARRHYTHMIA AND ALL VSS ON 2L (BASELINE). C/O GENERALIZED ARTHRITIC PAIN-MEDICATED PER EMAR. PT STATES HER BREATHING FEELS MUCH IMPROVED AND IS LOOKING FORWARD TO DC TO [facility] THIS AFTERNOON. REPORT CALLED TO SOBEIDA AT [facility]. PLEASE SEE ASSESSMENT FOR ADDITIONAL INFORMATION. WILL CONTINUE TO MONITOR
--- NOTE | 2018-11-28 09:37 | NUR ---
NOTIFIED MICAH HASKINS/DHSS OF PT'S DISPOSITION [phone]
== END 2018-11-25 14:57 | DRG 871 ==
LOC: M.ERS 11:45 → M.ICU 13:04 → M.TBA-ER 13:04 → M.ICU 17:06 → M.2W 11-20 10:02
PROVIDERS: Internal Medicine Critical Care Medicine; Internal Medicine Pulmonary Disease; Personal Emergency Response Attendant; ADMIT Internal Medicine
PROC: 5A09357 Assistance with Respiratory Ventilation, Less than 24 Consecutive Hours, Continuous Positive Airway Pressure (ICD-10-PCS; principal; 2018-11-17)
PROC: 5A09357 Assistance with Respiratory Ventilation, Less than 24 Consecutive Hours, Continuous Positive Airway Pressure (ICD-10-PCS; 2018-11-18)
PROC: 5A09357 Assistance with Respiratory Ventilation, Less than 24 Consecutive Hours, Continuous Positive Airway Pressure (ICD-10-PCS; 2018-11-19)
PROC: 5A09357 Assistance with Respiratory Ventilation, Less than 24 Consecutive Hours, Continuous Positive Airway Pressure (ICD-10-PCS; 2018-11-20)
PROC: 5A09357 Assistance with Respiratory Ventilation, Less than 24 Consecutive Hours, Continuous Positive Airway Pressure (ICD-10-PCS; 2018-11-21)
PROC: 5A09357 Assistance with Respiratory Ventilation, Less than 24 Consecutive Hours, Continuous Positive Airway Pressure (ICD-10-PCS; 2018-11-22)
PROC: 5A09357 Assistance with Respiratory Ventilation, Less than 24 Consecutive Hours, Continuous Positive Airway Pressure (ICD-10-PCS; 2018-11-23)
PROC: 5A09357 Assistance with Respiratory Ventilation, Less than 24 Consecutive Hours, Continuous Positive Airway Pressure (ICD-10-PCS; 2018-11-24)
DX: A41.9 Sepsis, unspecified organism (principal); J96.21 Acute and chronic respiratory failure with hypoxia; J96.22 Acute and chronic respiratory failure with hypercapnia; J44.1 Chronic obstructive pulmonary disease with (acute) exacerbation; N39.0 Urinary tract infection, site not specified; I50.32 Chronic diastolic (congestive) heart failure; B96.20 Unspecified Escherichia coli [E. coli] as the cause of diseases classified elsewhere; F17.210 Nicotine dependence, cigarettes, uncomplicated; K46.9 Unspecified abdominal hernia without obstruction or gangrene; M79.7 Fibromyalgia; I11.0 Hypertensive heart disease with heart failure; F41.9 Anxiety disorder, unspecified; Z90.710 Acquired absence of both cervix and uterus; Z99.81 Dependence on supplemental oxygen; Z88.8 Allergy status to other drugs, medicaments and biological substances; Z91.040 Latex allergy status; Z88.1 Allergy status to other antibiotic agents; Z85.41 Personal history of malignant neoplasm of cervix uteri

== ENCOUNTER 2018-12-30 00:06 | Inpatient (IN) | payer MEDICARE ==
[~2018-12-30] VITALS: Ht 157.5 cm; Wt 63.0 kg
[~2018-12-30 00:06] MED LIST changes: +ENOXAPARIN40 MG/0.1 SUBQ
[2018-12-30 00:07] VITALS: BP 161/56
[2018-12-30 00:29] LABS: HEMATOCRIT 33.3 % (37.0-47.0); HEMOGLOBIN 10.8 gm/dL (12.0-15.0); MCHC 32.4 g/dL (28.0-37.0); MCV 83.2 fL (80.0-100.0); MPV 6.7 fl. (7.2-11.1); NUCLEATED RBCS 0 /100WBC; PLATELET COUNT* 515 thou/uL (150-400); RDW-CV 16.7 % (10.5-14.5)
[2018-12-30 00:43] LABS: ANION GAP 7 mmol/L (7-16); BUN 10 mg/dL (7-18); CALCIUM 9.1 mg/dL (8.5-10.1); CHLORIDE 95 mmol/L (98-107); CO2 33 mmol/L (21-32); CREATININE 0.5 mg/dL (0.6-1.3); GLUCOSE 122 mg/dL (70-99); POTASSIUM 4.1 mmol/L (3.5-5.1); SODIUM 135 mmol/L (136-145)
[2018-12-30 00:44] LABS: INR 1.1; PROTIME 10.9 Seconds (9.20-11.50)
[2018-12-30 00:54] LABS: ALBUMIN 2.3 g/dL (3.4-5.0); ALKALINE PHOSPHATASE 71 U/L (46-116); LIPASE 57 U/L (73-393); NT-PRO BRAIN NAT PEPTIDE 1738 pg/mL (<300); SGOT 18 U/L (15-37); SGPT 22 U/L (30-65); TOTAL BILIRUBIN 0.4 mg/dL (<0.1-1.0); TROPONIN-I LEVEL <0.06 ng/mL (<0.06)
[2018-12-30] MEDS ORDERED: ATIVAN0.5 MG PO (01:13)
[2018-12-30] MEDS ORDERED: METOLAZONE 2.52.5 MG (01:14)
[2018-12-30 02:25] LABS: ABSOLUTE LYMPHOCYTES 0.9 thou/uL (0.8-5.3); ABSOLUTE MONOCYTES 1.1 thou/uL (0.0-1.2); PLATELET ESTIMATE INCREASED
[2018-12-30 02:26] LABS: ANISOCYTOSIS 1+; POIKILOCYTOSIS 1+; TOXIC GRANULATION 1+
[2018-12-30 02:53] LABS: BE 7.7 mmol/L (-2 to +3); PO2 122.9 mmHg (75.0-100.0); pH 7.397 (7.340-7.450)
[2018-12-30 02:55] LABS: PCO2 56.7 mmHg (35.0-45.0)
--- NOTE | 2018-12-30 07:52 | NUR ---
PT RECIEVED FROM ED. SAT MAINTAINED IN BIPAP. ALERT AND ORIENTED X4. CALL LIGHT WITHIN REAVH AND BED IN LOW POSITION. DENIES PAIN. HOURLY ROUNDING DONE FOR PT SAFETY.
[2018-12-30 08:00] VITALS: BP 129/48
[2018-12-30 09:55] LABS: CALCIUM 8.5 mg/dL (8.5-10.1); CREATININE 0.4 mg/dL (0.6-1.3); MAGNESIUM 1.7 mg/dL (1.8-2.4); POTASSIUM 4.4 mmol/L (3.5-5.1)
[2018-12-30 10:12] LABS: CK-MB MASS 2.2 ng/mL (<0.5-3.6)
--- NOTE | 2018-12-30 10:32 | EKG ---
[place] [address] ELECTROCARDIOGRAM REPORT Name: SOCRATES BROWN Room: [address] ADM IN [facility].#: [id number] Admission: 12/30/18 Attend Phys: Roxana Hall Discharge: Date of : 41 Report #: [id number] THIS REPORT FOR: //name// [facility] ED Test Date: 2018-12-30 Test Time: 00:29:13 Pat Name: SOCRATES BROWN Department: Room: [facility] Gender: F Assembly Cleaner: GL : 1945 Requested By: Cristal Sumner Order Number: [id number] MD: Mychal Richardson Measurements Intervals [place] Rate: 106 P: 79 CO: 142 QRS: 85 QRSD: 97 T: 53 QT: 330 QTc: 439 Interpretive Statements Sinus tachycardia Atrial premature complex Borderline right axis deviation Baseline wander in lead(s) I,II,aVR,V2 Compared to ECG 11/17/2018 12:46:30 Atrial premature complex(es) now present Atrial abnormality no longer present Electronically Signed On 12-30-2018 10:32:21 CDT by Mychal Richardson [email or web address] <ELECTRONICALLY SIGNED> By: Mychal Richardson MD, [facility] 12/30/18 1032 0029 0029 Mychal Richardson MD, [facility] /EPI
[2018-12-30 12:36] VITALS: BP 127/53
[2018-12-30 12:49] LABS: URINE BILIRUBIN NEGATIVE (Negative); URINE BLOOD NEGATIVE (Negative); URINE CLARITY CLEAR; URINE COLOR YELLOW; URINE GLUCOSE-RANDOM NEGATIVE (Negative); URINE KETONES NEGATIVE (Negative); URINE LEUKOCYTES-REFLEX NEGATIVE (Negative); URINE NITRITE-REFLEX NEGATIVE (Negative); URINE PROTEIN NEGATIVE (Negative); URINE SPECIFIC GRAVITY <= 1.005 (1.005-1.030); URINE UROBILINOGEN 0.2 E.U./dl (0.2-1.0)
--- NOTE | 2018-12-30 14:57 | NUR ---
CM spoke with Pt's DILDebbi, via phone. Per ALEX, Pt resides at home alone, Pt's son and other DIL, Farhana, go to Pt's home every morning to get her up and give her her meds. Pt has a hospital bed, commode and lift chair. Pt is current with [facility]. MARGO spoke with [facility], she informed that Pt was having an aide that would go into the home 3x/week, nurse 2x/week and SW once/week. [facility] has recommended either LTC or private duty to assist Pt at home, family/Pt declined and started assisting Pt more. Pt has a walker, home o2 and a trilogy at home, through [employer]. Hx of [facility]. Hx of [facility]. Per DIL, goal is [place]. Per hospice SW, she is unsure that they will be able to accept Pt back on to service d/t her repeated readmissions to the hospice, CM to contact Pt's hospice nurse, Beth, , [place] to determine if they will be able to readmit. CM to continue to try and reach Pt's DILFarhana, regarding disposition. Following.
[2018-12-30 17:09] VITALS: BP 128/66
--- NOTE | 2018-12-30 19:34 | NUR ---
RECEIVED REPORT. ASSUMED CARE OF PT AROUND 0730. PT A&OX4. VSS. O2 SAT >90 ON 2L PER NC. CNC MANAGER IN PLACE TRACING SR TO ST WITH NO CHANGES THIS SHIFT. AM ASSESSMENT AND VITALS COMPLETED CHARTED. IV INTACT AND SALINE LOCKED. PT REPORTED BILATERAL HIP PAIN THIS MORNING THAT WAS TREATED WITH PO PAIN MEDICATION WITH PARTIAL RELIEF. FAMILY VISITED THIS MORNING. PT BEING TURNED Q2HRS FOR COMFORT. PT UP WITH SBA TO BEDSIDE COMMODE, VOIDING WELL. 2000ML FLUID RESTRICTION OBSERVED, SEE I&O CHARTING. PT HAD BM X2 THIS SHIFT. UA OBTAINTED AND SENT DOWN. PT CURRENTLY RESTING IN BED. CALL LIGHT IS WITHIN REACH. HOURLY ROUNDING PERFORMED. ALL NEEDS MET AT THIS TIME. FALL PRECAUTIONS IN PLACE.
[2018-12-30 20:00] VITALS: BP 136/46
[2018-12-31] VITALS: BP 124/55
[2018-12-31 04:15] VITALS: BP 110/37
[2018-12-31 05:27] LABS: HEMATOCRIT 27.3 % (37.0-47.0); MCH 27.3 pg (26.0-34.0); MCV 82.7 fL (80.0-100.0); MPV 7.2 fl. (7.2-11.1); RBC 3.3 mil/uL (4.20-5.00); RDW-CV 16.8 % (10.5-14.5); WBC 14.8 thou/uL (4.0-11.0)
--- NOTE | 2018-12-31 05:58 | NUR ---
ASSUMED PT CARE @ 1930. NO SOA REPOTED OR OBSERVED. PT DOES HAVE A COARSE NON-PRODUCTIVE COUGH- AND LUNGS SOUNDED "TIGHT" PRIOR TO RT TX. WORE BIPAP THROUGH NIGHT. PAIN, ANXIETY, AND SLEEP MEDICATION EFFECTIVE. CALL LIGHT IN REACH. HOURLY ROUNDING FOR SAFETY.
[2018-12-31 06:28] LABS: CALCIUM 8.7 mg/dL (8.5-10.1); CK-MB MASS 2.1 ng/mL (<0.5-3.6); CREATININE 0.7 mg/dL (0.6-1.3); MAGNESIUM 1.7 mg/dL (1.8-2.4)
[2018-12-31 06:29] LABS: POTASSIUM 2.7 mmol/L (3.5-5.1)
[2018-12-31 08:00] VITALS: BP 135/48
--- NOTE | 2018-12-31 10:17 | NUR ---
ASSUMED CARE OF PT AT 0730. PT RESTING IN BED. PT A&0X4, COMPLAINS OF PAIN TO BILATERAL SHOULDERS FROM ARTHRITIS. TREATED WITH PRN TRAMADOL WITH PARTIAL RELIEF. PT TRACING ST ON THE PRODUCTION UTILITY WORKER. ON 2L NC SAT UPPER 90'S. PT DENIES ANY SHORTNESS OF BREATH. PT UP WITH 1 ASSIST TO BSC. PT GOAL FOR TODAY IS PAIN MGMT, REPLACE POTASSIUM AND MAGNESIUM PER ELECTROLYTE PROTOCOL AND INCREASE ACTIVITY. PT ON 2,000 ML FLUID RESTRICTION. AM ASSESSMENT CHARTED. MEDICATIONS PER OCT. PT REPOSITIONS SELF WITH REMINDERS. HOURLY ROUNDING OBSERVED.
--- NOTE | 2018-12-31 12:09 | NUR ---
Hospice was revoked prior to Pt being admitted to the hospital
--- NOTE | 2018-12-31 12:58 | CON ---
[address] [address] CONSULTATION Name: SOCRATES BROWN Room: [address] IN [facility].#: [id number] Admission: 12/30/18 Attend Phys: Roxana Hall Discharge: Date of : 41 Report #: [id number] THIS REPORT FOR: //name// CC: Fabian Ulloa DATE OF SERVICE: 12/30/2018 REQUESTING PHYSICIAN: Yaw Garcia MD. REASON FOR CONSULTATION: Severe COPD with exacerbation, respiratory failure. DISCUSSION: The patient is a 73-year-old woman with a history of underlying COPD. Baseline, it is apparently severe. She has had several hospitalizations here at [facility] this year. Reportedly, was back at home on hospice care for her COPD. Over the last couple of days; however, she has become increasingly short of breath. She describes it as feeling where she cannot breathe well. Chest tightness. She notes she did not feel like it was a COPD exacerbation. She is a former smoker, quitting several months ago. She does have a Trilogy at home, has been using that at night. With the dyspnea she had yesterday, she was also wearing it during the day. She is also on O2 24/. She has a nebulizer at home. At home, she has been doing it only once or twice a day. When she previously was in long-term facility, she was using it 4 times a day, which she did believe helped her. She was off prednisone. She also was on some oral albuterol tablets. Our group has seen her previously when she has been in the hospital here. I do not know that we have seen her in the office. She is very pleasant and alert, but she freely admits she is having some trouble with her short short-term memory. PAST MEDICAL HISTORY: Remarkable for the COPD as noted. She has been O2 dependent for some time. Also, has a history of hypertension, cervical cancer, which was diagnosed several years ago, she did have a hysterectomy, fibromyalgia, influenza. HOME MEDICATIONS: She has been on nebulizer, which I believe is DuoNeb, aspirin, tramadol p.r.n., Prozac, olanzapine, losartan, p.r.n. nitroglycerin, flecainide, lorazepam, potassium, Lasix, metolazone, Mucinex, multivitamins. SOCIAL HISTORY: She is a former smoker as noted. She has had several hospital stays here. Upon discharge, she has gone to [facility]. Recently, now had been sent home. She is on hospice at home. She notes when she is on hospice where she is physically unable to get out [place] [address] CONSULTATION Name: SOCRATES BROWN Geo Room: [address] IN [facility]#: [id number] Admission: 12/30/18 Attend Phys: Roxana Hall Discharge: Date of : 41 Report #: [id number] visits. She is a former smoker. She is vague as to the amount she was smoking, which apparently did quit at the time of one of her hospitalizations earlier this year. FAMILY HISTORY: Positive for breast cancer. REVIEW OF SYSTEMS: ROS was done. Note positives as above. She has had some upper airway congestion. She denies any difficulty swallowing. No true chest pain or palpitations. She does note, however, felt very tight with type of burning sensation in her chest. She notes it was different than what she has had in the past when her COPD would flareup. She also notes she has had a lot of pain and swelling in her joints, especially her hands and wrists. Would think within a short period of time coming into the hospital, she did note a dramatic improvement in her joints and her ability to flex her hands once she receives the steroids. She has had a chronic lower extremity edema. Denies any recent falls. No syncopal episodes. PHYSICAL EXAMINATION: GENERAL APPEARANCE: This is a woman who looks stated age. She is sitting up in the chair. She is alert and conversant. O2 running via nasal cannula. She is able to speak in full sentences. HEENT: Head is normocephalic and atraumatic. Sclerae nonicteric. Mucous membranes are moist. NECK: Negative for adenopathy. No JVD is noted. HEART: Regular rate. No S3 is heard. Tones are a little distant. LUNGS: Show breath sounds to be diminished. She has a prolonged expiratory phase. No wheezing is heard. May have a few faint bibasilar crackles heard. Excursion is equal. ABDOMEN: Obese, but soft. EXTREMITIES: She does have a little edema of her hands. The joints do not feel hot. She has 1-2+ edema in her lower extremities. SKIN: Warm and dry. NEUROLOGIC: She is alert and oriented x 3. Short-term memory fair to poor. LABORATORY AND X-RAY FINDINGS: Arterial blood gas done early this morning, she had a pH of 7.397, a pCO2 of 57, a pO2 of 123, bicarbonate 34 with a saturation of 97%. On her chemistry, BUN is 10, creatinine of 0.4, potassium is 4.4. ProBNP just over 1700. Coag studies unremarkable. Her D-dimer was 4.71. White blood cell count 18,000, hemoglobin 10.3, hematocrit of 33.3, platelets 515,000. Blood cultures have been sent. UA was unremarkable. A chest x-ray was reviewed. She did have a portable chest x-ray done. It was similar to older studies. She did have CTA of her chest. No pulmonary emboli were seen. Emphysematous changes are noted. Fibrotic changes. It does appear she has infiltrate seen posteriorly right lower lung field. There are also changes of bronchiectasis. [place] [address] CONSULTATION Name: SOCRATES BROWN Room: [address] IN [facility].#: [id number] Admission: 12/30/18 Attend Phys: Roxana Hall Discharge: Date of : 41 Report #: [id number] IMPRESSION: 1. Acute respiratory failure superimposed on chronic respiratory failure. She is chronically hypercapnic and hypoxic. Does have a Trilogy at home. May be becoming steroid dependent. 2. Chronic obstructive pulmonary disease exacerbation, is improving. 3. Complaints of marked shortness of breath. Most likely was related to her chronic obstructive pulmonary disease. 4. History of tobacco abuse. RECOMMENDATIONS: 1. Continue bronchodilator therapy. 2. Sleep with AVAPS while here. Return to using her Trilogy when she is at home. 3. It is possible she may have some underlying inflammatory arthritis as well. Per history, she does get a dramatic improvement in some of her joint swelling when she is on the steroids. 4. Wean steroids as able. Long-term, she may benefit on a maintenance dose of steroids. We will need to weigh the risks and benefits. 5. She was asking multiple questions about hospice. I am not sure what the usual goals of hospice are in line with hers. However, she does note that she would not want to be resuscitated and wishes to allow natural when it does occur. <ELECTRONICALLY SIGNED> By: Zari Andrew MD 12/31/18 1258 1502 [id number] Andrew MD /nt
[2018-12-31 13:37] VITALS: BP 122/45
--- NOTE | 2018-12-31 15:43 | CON ---
[address] [address] CONSULTATION Name: SOCRATES BROWN Room: [address] IN [facility].R.#: [id number] Admission: 12/30/18 Attend Phys: Roxana Hall Discharge: Date of : 41 Report #: [id number] THIS REPORT FOR: //name// CC: Fabian Mason DATE OF SERVICE: 12/30/2018 HISTORY OF PRESENT ILLNESS: The patient is a 73-year-old single white female who I was asked to see in the hospital today after she complained of being short of breath. The patient has a history of heavy smoking in the past. She has COPD and is on home oxygen. She currently is on hospice. She was actually admitted here in 2012 with a COPD exacerbation, was felt to have pneumonia. She has had multiple hospitalizations here at [facility] since that time. She has been followed by the Pulmonary service. She apparently has had a history of tachycardia in the past. She was just recently admitted to [facility] a month ago with COPD exacerbation and was discharged to care home facility. She had previous echocardiogram done in September that showed ejection fraction 60% with aortic sclerosis. She states recently she has had increasing shortness of breath and edema. She called the ambulance this morning and was brought here to [facility]. I was asked to see her for further evaluation and treatment. She has a history of rheumatoid arthritis and has had swelling of her feet. She denied any palpitation or syncope. PAST MEDICAL HISTORY: He has had previous hysterectomy for cervical cancer, cholecystectomy. She has a history of hypertension, but no history of diabetes. MEDICATIONS: On admission include Lasix, Prozac, losartan, potassium, tramadol, DuoNeb treatments, aspirin. She is on flecainide for her tachycardia. Ativan, metolazone as needed for edema. ALLERGIES: SHE HAS PREVIOUS INTOLERANCE TO AZITHROMYCIN AND CELECOXIB. FAMILY HISTORY: Positive for heart disease. SOCIAL HISTORY: She is . Used to smoke a pack of cigarettes a day, now quit. No alcohol abuse. REVIEW OF SYSTEMS: She has no history of stroke or liver disease. She has chronic kidney disease. No psychiatric illness. No chronic skin condition. PHYSICAL EXAMINATION: GENERAL: Revealed an elderly frail-appearing female, sitting in a chair. She appeared in mild respiratory distress. She has a CPAP in place. VITAL SIGNS: She had a blood pressure of 130/80, pulse is 90[place] [address] CONSULTATION Name: SOCRATES BROWN Room: [address] IN [facility].#: [id number] Admission: 12/30/18 Attend Phys: Roxana Hall Discharge: Date of : 41 Report #: [id number] HEENT: She was anicteric, conjunctivae pink, mucous membranes moist. NECK: Veins do not appear distended. No carotid bruits. Neck supple. CHEST: Revealed distant breath sounds. CARDIOVASCULAR: Regular rate and rhythm, grade 2 systolic ejection murmur. ABDOMEN: Obese. EXTREMITIES: Had trace edema. SKIN: Cool and dry. NEUROLOGIC: Nonfocal. LYMPH: No adenopathy. MUSCULOSKELETAL: No joint effusion. DIAGNOSTIC DATA: ECG shows a sinus tachycardia. No significant ST or T-wave change. She had carotid Doppler study in 2016, showed no significant stenosis. However, there was an external carotid stenosis noted. She had chest x-ray this morning that showed cardiomegaly, clear lung suarez. She had a CT scan of the chest using the PE protocol this morning that showed no pulmonary embolus. Blebs noted. Possible infiltrate, some bronchiectasis. LABORATORY DATA: Sodium 137, creatinine 0.4, albumin is 2.3. Troponin 0.06. BNP 1755. Recent TSH 0.8. White blood cell count 18,000, hemoglobin 10.8, hematocrit 33. It was noted to be 32 in August. IMPRESSION AND RECOMMENDATIONS: 1. Chronic obstructive pulmonary disease. 2. Edema. Suspect venous insufficiency. 3. Anemia. 4. Previous tobacco abuse. 5. History of tachycardia. The patient is on flecainide. <ELECTRONICALLY SIGNED> By: Mychal Richardson MD, FACC 12/31/18 1543 1109 [id number] Richardson MD, FACC /nt
[2018-12-31 17:12] VITALS: BP 147/56
--- NOTE | 2018-12-31 18:30 | NUR ---
NO ACUTE CHANGES THROUGHOUT SHIFT. REFER TO CHARTING. POTASSIUM AND MAGNESIUM REPLACED PER ELECTROLYTE PROTOCOL. REFER TO EMAR. PT SLOWLY PROGRESSING TOWARDS GOALS. PT TO HAVE CXR IN AM. CONTINUES TO TRACE SR ON THE JAVA JSF DEVELOPER. ON 2L NC SAT UPPER 90'S. PT DENIES ANY SHORTNESS OF BREATH OR PAIN THIS AFTERNOON. MEDICATIONS PER OCT. PT REPOSITIONS SELF. HOURLY ROUNDING OBSERVED. BED IN LOW POSITION. CALL LIGHT WITHIN REACH. WILL CONTINUE PLAN OF CARE.
[2018-12-31 20:00] VITALS: BP 132/52
[2019-01-01 00:01] VITALS: BP 151/68
[2019-01-01 04:29] VITALS: BP 125/50
[2019-01-01 06:20] LABS: CALCIUM 8.8 mg/dL (8.5-10.1); CK-MB MASS 1.7 ng/mL (<0.5-3.6); CREATININE 0.5 mg/dL (0.6-1.3); MAGNESIUM 1.7 mg/dL (1.8-2.4)
[2019-01-01 08:00] VITALS: BP 161/65
[2019-01-01 12:00] VITALS: BP 165/60
--- NOTE | 2019-01-01 13:43 | NUR ---
ASSUMED CARE OF PT AT 0730. PT RESTING IN BED. PT A&0X4, COMPLAINS OF PAIN TO SHOULDERS AND LEGS. TREATED WITH PRN TRAMADOL WITH PARTIAL RELIEF. PT TRACING SR ON THE HOSPITAL INTERN. ON 2L NC SAT UPPER 90'S. PT DENIES ANY SHORTNESS OF BREATH. PT UP WITH 1 ASSIST TO BSC. PT GOAL FOR TODAY IS PULM CONSULT IN PLACE, REPLACE MAGNESIUM PER ELECTROLYTE PROTOCOL AND INCREASE ACTIVITY. AM ASSESSMENT CHARTED. MEDICATIONS PER OCT. PT REPOSITIONS SELF. HOURLY ROUNDING OBSERVED. BED IN LOW POSITION. CALL LIGHT WITHIN REACH. WILL CONTINUE TO PLAN OF CARE.
[2019-01-01 16:43] VITALS: BP 139/59
--- NOTE | 2019-01-01 18:54 | NUR ---
NO ACUTE CHANGES THROUGHOUT SHIFT. REFER TO CHARTING. PT PROGRESSING TOWARDS GOALS. REPEAT CXR IN AM. CONTINUES TO TRACE SR/ST ON THE CYLINDER GRINDER. ON 2L NC SAT UPPER 90'S. PT DENIES ANY PAIN OR SHORTNESS OF BREATH THIS AFTERNOON. PULMONARY CONSULT IN PLACE. PT ON 2,000 FLUID RESTRICTION. MEDICATIONS PER OCT. PT REPOSITIONS SELF. HOURLY ROUNDING OBSERVED. BED IN LOW POSITION. CALL LIGHT WITHIN REACH, WILL CONTINUE PLAN OF CARE.
[2019-01-01 20:00] VITALS: BP 137/43
[2019-01-02] VITALS (7 sets, daily range): BP systolic 108–181; BP diastolic 34–66
[2019-01-02 05:38] LABS: ABSOLUTE EOSINOPHILS 0.1 thou/uL (0.0-0.7); ABSOLUTE LYMPHOCYTES 2.6 thou/uL (0.8-5.3); ABSOLUTE MONOCYTES 1.3 thou/uL (0.0-1.2); ABSOLUTE NEUTROPHILS 8.6 thou/uL (1.6-8.1); BASOPHILS 0.1 %; EOSINOPHILS 0.6 %; HEMATOCRIT 28.4 % (37.0-47.0); HEMOGLOBIN 9.3 gm/dL (12.0-15.0); LYMPHOCYTES 20.9 %; MCH 27.3 pg (26.0-34.0); MCHC 32.8 g/dL (28.0-37.0); MCV 83.2 fL (80.0-100.0); MPV 6.6 fl. (7.2-11.1); NUCLEATED RBCS 0 /100WBC; PLATELET COUNT* 430 thou/uL (150-400); POLYS 68.4 %; RBC 3.41 mil/uL (4.20-5.00); RDW-CV 16.9 % (10.5-14.5); WBC 12.6 thou/uL (4.0-11.0)
[2019-01-02 05:57] LABS: ALBUMIN 1.9 g/dL (3.4-5.0); CALCIUM 8.7 mg/dL (8.5-10.1); CREATININE 0.5 mg/dL (0.6-1.3); MAGNESIUM 1.8 mg/dL (1.8-2.4); POTASSIUM 3.8 mmol/L (3.5-5.1); TOTAL BILIRUBIN 0.2 mg/dL (<0.1-1.0); TOTAL PROTEIN 5.5 g/dL (6.4-8.2)
--- NOTE | 2019-01-02 07:40 | NUR ---
PT DENIED ANY SOA OR RESPIRATORY ISSUES. WORE BIPAP THROUGHOUT THE NIGHT. PAIN AND ANXIETY MEDICATION GIVEN @ BEDTIME EFFECTIVE. CALL LIGHT IN REACH. HOURLY ROUNDING FOR SAFETY.
--- NOTE | 2019-01-02 09:11 | NUR ---
ASSUMED CARE OF PT AT 0730. PT RESTING IN BED. PT A&0X4, FORGETFUL AT TIMES. PT DENIES ANY PAIN OR SHORTNESS OF BREATH AT THIS TIME. PT TRACING SR/ST ON THE PARK MANAGER. ON 2L NC SAT UPPER 90'S. PT UP WITH 1 ASSIST BSC. PT GOAL FOR TODAY IS PULMONARY CONSULT AND DISCHARGE PLANNING. FLUID RESTRICTION IN PLACE. AM ASSESSMENT CHARTED. MEDICATIONS PER OCT. PT REPOSITIONS SELF. HOURLY ROUNDING OBSERVED. BED IN LOW POSITION. CALL LIGHT WITHIN REACH. WILL CONTINUE PLAN OF CARE.
--- NOTE | 2019-01-02 10:02 | NUR ---
Pt continues to plan to return home at [facility]. Discussed hospice, Pt wants to continue hospice with [facility]. CM spoke with Pt's nurse at [facility], they will have to decide if they are able to accept Pt back onto service at [facility], hospice plans to speak with Pt. Discussed alternate living situations, Pt states that both of her son's have offered for her to live with them, but she is not sure if she wants to do that yet. Following.
--- NOTE | 2019-01-02 17:05 | NUR ---
NO ACUTE CHANGES THROUGHOUT SHIFT. REFER TO CHARTING. PT PROGRESSING TOWARDS GOALS. PROBABLE DISCHARGE HOME WITH HOSPICE TOMORROW 01/03. RUPAL HOSE APPLIED TO BILATERAL LE'S. PT DENIES ANY PAIN OR SHORTNESS OF BREATH THIS AFTERNOON. CONTINUES TO TRACE SR/ST ON THE AMMUNITION SPECIALIST. ON 2L NC SAT UPPER 90'S. PT UP WITH 1 ASSIST BSC. PT UP TO CHAIR FOR MEALS. MEDICATIONS PER OCT. PT REPOSITIONS SELF. HOURLY ROUNDING OBSERVED. BED IN LOW POSITION. CALL LIGHT WITHIN REACH. WILL CONTINUE PLAN OF CARE.
[2019-01-03 00:12] VITALS: BP 136/51
--- NOTE | 2019-01-03 02:16 | NUR ---
ASSUMED CARE OF PT AT 1900. PT IS ALERT AND ORIENTED. VSS. PERRLA. NO COMPLAINTS OF PAIN. PT IS IN SINUS RYTHM ON THE TELEMETRY. PT IS TOLERATING BIPAP WELL. PT IS SLEEPING QUIETLY IN BED. RESPIRATIONS ARE EVEN AND NONLABORED. WILL CONTINUE TO MONITOR PT.
[2019-01-03 04:24] VITALS: BP 165/62
[2019-01-03 08:15] VITALS: BP 151/54
--- NOTE | 2019-01-03 10:31 | NUR ---
Discussed disposition with Pt, Pt in agreement with going to skilled if it doesn't cost her a lot of money. CM spoke with DIL, family is in agreement with referrals being sent to [place], [facility] and [facility]. Updated Dr. George.
[2019-01-03 12:40] VITALS: BP 134/53
[2019-01-03 16:11] VITALS: BP 138/61
--- NOTE | 2019-01-03 18:34 | NUR ---
PT ASSESSMENT CHARTED. VSS THROUGHOUT THE DAY. UP WITH ASSISTANCE TO BEDSIDE COMMODE. PAIN RATED 5-6 ARTHRITIC PAIN AND IS RELIEVED WITH PRN PAIN MEDICATION. X1 DOSE OF TORODOL GIVEN AND PATIENT STATED THAT IT HELPED WITH HER PAIN MORE SO THAN ANYTHING ELSE SHE HAS RECEIVED. PT WALKED WITH PT AND UP IN ROOM.
[2019-01-03 20:00] VITALS: BP 143/51
[2019-01-04] VITALS: BP 155/50
[2019-01-04 04:00] VITALS: BP 150/48
--- NOTE | 2019-01-04 05:16 | NUR ---
PT ALERT OREINTED. UP TO BSC WITH STD BY ASSIST. TELEMETRY SHOWS SR. O2 AT 2 LITERS NC. BIPAP AT HS. TYLENOL AND TRAMADOL GIVEN FOR GENERALIZED PAIN. ANXIETY MEDIATION GIVEN PER PT REQUEST. PT RESTED WELL.
[2019-01-04 05:42] LABS: ABSOLUTE EOSINOPHILS 0.1 thou/uL (0.0-0.7); ABSOLUTE LYMPHOCYTES 2.5 thou/uL (0.8-5.3); ABSOLUTE MONOCYTES 1.3 thou/uL (0.0-1.2); ABSOLUTE NEUTROPHILS 11.5 thou/uL (1.6-8.1); BASOPHILS 0.2 %; EOSINOPHILS 0.9 %; HEMATOCRIT 31.9 % (37.0-47.0); LYMPHOCYTES 16.4 %; MCH 26.5 pg (26.0-34.0); MCHC 31.5 g/dL (28.0-37.0); MCV 84.1 fL (80.0-100.0); MONOCYTES 8.5 %; MPV 6.9 fl. (7.2-11.1); NUCLEATED RBCS 0 /100WBC; PLATELET COUNT* 477 thou/uL (150-400); RBC 3.79 mil/uL (4.20-5.00); RDW-CV 17.2 % (10.5-14.5); WBC 15.5 thou/uL (4.0-11.0)
[2019-01-04 05:50] LABS: CALCIUM 8.7 mg/dL (8.5-10.1); CREATININE 0.7 mg/dL (0.6-1.3); MAGNESIUM 1.7 mg/dL (1.8-2.4); POTASSIUM 5.1 mmol/L (3.5-5.1)
[2019-01-04 07:55] VITALS: BP 150/46
--- NOTE | 2019-01-04 10:49 | NUR ---
PT ALERT AND ORIENTED. TELE TRACKING SR AND ALL VSS ON 2L. DENIES CP,SOA. UP TO CHAIR THIS AM. EDUCATED ON SAFETY AND PLAN OF CARE. PLEASE SEE ASSESSMENT FOR ADDITIONAL INFORMATION. WILL CONT TO MONITOR
[2019-01-04 12:00] VITALS: BP 127/47
[2019-01-04] MEDS ORDERED: IPRAT-ALBUT 0.5-3 ML INH (13:15)
[2019-01-04] MEDS ORDERED: PREDNISONE 10 M10 MG PO (13:19)
[2019-01-04] MEDS ORDERED: MELATONIN3 MG PO (13:19)
[2019-01-04] MEDS ORDERED: MAGNESIUM400 MG PO (13:20)
[2019-01-04 14:38] VITALS: BP 127/47
--- NOTE | 2019-01-04 14:56 | NUR ---
RECEIVED DC ORDERS HOME WITH HOSPICE. PT TO RESUME CARE WITH [facility]. SPOKE WITH NEHEMIAH/[facility]. SHE IS CONFIRMING THAT EQUIPMENT STILL IN PT'S HOME. ASKED THAT SHE CONTACT ALEX/GUDELIA. ORDERS FAXED TO HER. AWAIT CONFIRMATION CALL BACK. NURSE AND PT UPDATED.
== END 2019-01-04 18:16 | disposition hospice, home (50) | DRG 291 ==
LOC: M.ERS 00:06 → M.TBA-ER 03:24 → M.2W 03:24
PROVIDERS: Emergency Medicine; Family Medicine; Internal Medicine; Internal Medicine Critical Care Medicine; ADMIT Internal Medicine
PROC: 5A09357 Assistance with Respiratory Ventilation, Less than 24 Consecutive Hours, Continuous Positive Airway Pressure (ICD-10-PCS; principal; 2018-12-30)
PROC: 5A09357 Assistance with Respiratory Ventilation, Less than 24 Consecutive Hours, Continuous Positive Airway Pressure (ICD-10-PCS; 2019-01-02)
DX: I11.0 Hypertensive heart disease with heart failure (principal); J96.21 Acute and chronic respiratory failure with hypoxia; J96.22 Acute and chronic respiratory failure with hypercapnia; J44.1 Chronic obstructive pulmonary disease with (acute) exacerbation; E44.0 Moderate protein-calorie malnutrition; I47.1 Supraventricular tachycardia; I50.33 Acute on chronic diastolic (congestive) heart failure; D64.9 Anemia, unspecified; F41.1 Generalized anxiety disorder; R60.9 Edema, unspecified; E87.6 Hypokalemia; I73.9 Peripheral vascular disease, unspecified; M79.7 Fibromyalgia; M06.9 Rheumatoid arthritis, unspecified; Z66 Do not resuscitate; Z90.710 Acquired absence of both cervix and uterus; Z85.41 Personal history of malignant neoplasm of cervix uteri; Z88.8 Allergy status to other drugs, medicaments and biological substances; Z88.1 Allergy status to other antibiotic agents; Z91.040 Latex allergy status; Z90.49 Acquired absence of other specified parts of digestive tract; Z82.49 Family history of ischemic heart disease and other diseases of the circulatory system; Z87.891 Personal history of nicotine dependence; Z68.25 Body mass index [BMI] 25.0-25.9, adult; Z79.82 Long term (current) use of aspirin; Z79.899 Other long term (current) drug therapy

== ENCOUNTER 2019-06-02 09:30 | Emergency (ER) | payer OTHER ==
[~2019-06-02] VITALS: Ht 162.6 cm; Wt 54.4 kg
[~2019-06-02 09:30] MED LIST changes: +MAGNESIUM400 MG PO; +MELATONIN3 MG PO; +METOLAZONE 2.52.5 MG
[2019-06-02 10:34] VITALS: BP 0/0
== END 2019-06-02 10:34 ==
LOC: M.ERS 09:30
DX: I46.9 Cardiac arrest, cause unspecified (principal); J44.9 Chronic obstructive pulmonary disease, unspecified; F41.9 Anxiety disorder, unspecified; F17.210 Nicotine dependence, cigarettes, uncomplicated; I11.0 Hypertensive heart disease with heart failure; I50.32 Chronic diastolic (congestive) heart failure; M79.7 Fibromyalgia; Z90.710 Acquired absence of both cervix and uterus; Z88.8 Allergy status to other drugs, medicaments and biological substances; Z88.1 Allergy status to other antibiotic agents